=== PATIENT | male | born 1985 | race Hispanic/Latino ===

== ENCOUNTER 2018-11-15 17:09 | Inpatient (IN) | payer OTHER ==
[2018-11-15 17:36] LABS: #Basophils 0.1 thou/uL (0.0-0.2); #Eosinphils 0.1 thou/uL (0.0-0.7); #Lymphocytes 2.3 thou/uL (1.20-3.40); #Neutrophils 11.3 thou/uL (1.40-6.50); %Basophils 0.6 % (0.0-1.0); %Eosinophils 0.9 % (0.0-10.0); %Lymphocytes 15.3 % (21.0-51.0); %Monocytes 6.7 % (0.0-10.0); %Neutrophils 76.5 % (42.0-75.0); Hemoglobin 17.4 g/dL (14.0-18.0); Mean Corpuscular HGB CONC 34.1 g/dL (32.0-36.0); Mean Corpuscular Hemoglobin 30.9 pg (27.0-31.0); Mean Corpuscular Volume 90.8 fL (78.0-98.0); Mean Platelet Volume 7.1 fL (7.4-10.4); Platelet Count 337 thou/uL (130-400); RBC Distribution Width 11.8 % (11.5-14.5); Red Blood Cell (RBC) Count 5.62 mill/uL (4.70-6.10); White Blood Cell (WBC) Count 14.7 thou/uL (4.8-10.8)
[2018-11-15 18:03] LABS: ALT (SGPT) 9 U/L (8-55); AST (SGOT) 11 U/L (5-34); Albumin 4.7 g/dL (3.5-5.0); Alkaline Phosphatase 114 U/L (40-150); Anion Gap 25 mmol/L (10-20); BUN (Urea Nitrogen) 12 mg/dL (8.9-20.6); Bilirubin, Total 0.6 mg/dL (0.2-1.2); Calc. Creatinine Clearance 0 mL/min (70-130); Calcium 9.6 mg/dL (7.8-10.44); Carbon Dioxide 10 mmol/L (22-29); Chloride 99 mmol/L (98-107); Estimated GFR-MDRD 48; Glucose 323 mg/dL (70-105); Lipase 21 U/L (8-78); Potassium 4.9 mmol/L (3.5-5.1); Protein, Total 8.7 g/dL (6.0-8.3); Sodium 129 mmol/L (136-145)
[2018-11-15 19:56] LABS: Bacteria/HPF None Seen HPF (None Seen); Bilirubin Negative (Negative); Blood, Urine 1+ (Negative); Clarity Clear (Clear); Glucose, Urine (Dipstick) Greater than 1000 mg/dL (Negative); Leukocyte Negative Leu/uL (Negative); Nitrite Negative (Negative); Protein, Urine (Dipstick) 100 mg/dL (Neg-Trace); Squamous Epithelial 0-3 HPF (0-3); Urobilinogen Normal mg/dL (Less than 2); WBC/HPF 0-3 HPF (0-3)
[2018-11-15] MEDS ORDERED: Insulin Regular 300 UNITS/3 ML VIAL ONE (20:50)
[2018-11-15 21:17] LABS: Anion Gap 23 mmol/L (10-20); BUN (Urea Nitrogen) 11 mg/dL (8.9-20.6); Calc. Creatinine Clearance 0 mL/min (70-130); Calcium 8.7 mg/dL (7.8-10.44); Carbon Dioxide 10 mmol/L (22-29); Chloride 103 mmol/L (98-107); Estimated GFR-MDRD 58; Glucose 262 mg/dL (70-105); Potassium 4.8 mmol/L (3.5-5.1); Sodium 131 mmol/L (136-145)
[2018-11-15] MEDS ORDERED: NS 0.9% w/ 20 MEQ KCL 1,000 ML IV PRN ×2 (21:31)
[2018-11-15] MEDS ORDERED: Dextrose 5 %-0.45 % NaCl 1,000 ML IV PRN (21:31)
[2018-11-15] MEDS ORDERED: Sodium Chloride 0.9% 1,000 ML IV PRN ×4 (21:31)
[2018-11-15] MEDS ORDERED: CCU Electrolyte Replacement 1 EACH IVPB ONE (21:31)
[2018-11-15] MEDS ORDERED: Acetaminophen 325 MG TAB PO PRN (21:33)
[2018-11-15] MEDS ORDERED: Potassium Phosphate 15 MMOL in Sodium Chloride 0.9% 250 ML 250 ML IV PRN (21:38)
[2018-11-15] MEDS ORDERED: Potassium Phosphate 12 MMOL in Sodium Chloride 0.9% 250 ML 250 ML IV PRN (21:38)
[2018-11-15] MEDS ORDERED: Potassium Chloride 40 MEQ in Premix Bag 1 BAG IVPB PRN (21:38)
[2018-11-15] MEDS ORDERED: Magnesium Oxide 400 MG TAB PO PRN ×2 (21:38)
[2018-11-15] MEDS ORDERED: Potassium Chloride 40 MEQ in Sodium Chloride 0.9% 250 ML 250 ML IVPB PRN (21:38)
[2018-11-15] MEDS ORDERED: Potassium Chloride 20 MEQ TAB PO PRN (21:38)
[2018-11-15] MEDS ORDERED: PHOS-NAK 1 PKT PACK PO PRN ×2 (21:38)
[2018-11-15] MEDS ORDERED: CCU ELECTROLYTE REPLACEMENT PROTOCOL FS PRN (21:38)
[2018-11-15] MEDS ORDERED: Potassium Phosphate 9 MMOL in Sodium Chloride 0.9% 100 ML IVPB PRN (21:38)
[2018-11-15] MEDS ORDERED: Magnesium 2 GM/50 ML 2 GM in Premix Bag 1 BAG IVPB PRN (21:38)
[2018-11-15 21:45] LABS: Base Excess-Venous -19.3 mmol/L (-2.0 to 3.0); Bicarbonate (HCO3v) 9.2 mmol/L (22.0-28.0); CO2 Tension (PvCO2) 30.2 mmHg (40.0-50.0); Calcium, Ionized 1.14 mmol/L (See Comments:); Chloride 116 mmol/L (98-107); Hemoglobin - Calc 18.3 g/dL (14.0-18.0); Potassium 4.7 mmol/L (3.5-5.1); Sodium 135 mmol/L (138-145); T. Carbon Dioxide 10.2 mmol/L (22.0-28.0); vO2 Saturation-calc 20.2 % (60.0-85.0)
[2018-11-15] MEDS ORDERED: HUMULIN R 100 UNITS in Sodium Chloride 0.9% 100 ML IVPB SCH (21:45)
[2018-11-15 22:09] LABS: Anion Gap 21 mmol/L (10-20); BUN (Urea Nitrogen) 10 mg/dL (8.9-20.6); Calc. Creatinine Clearance 0 mL/min (70-130); Calcium 8.4 mg/dL (7.8-10.44); Chloride 106 mmol/L (98-107); Estimated GFR-MDRD 59; Glucose 238 mg/dL (70-105); Potassium 4.4 mmol/L (3.5-5.1); Sodium 132 mmol/L (136-145)
[2018-11-15 22:12] LABS: Carbon Dioxide 9 mmol/L (22-29)
[2018-11-15] MEDS ORDERED: Sodium Bicarb 50 MEQ/50 ML Abboject 8.4% SYRINGE IVP SCH (22:30)
[2018-11-15] MEDS ORDERED: Sodium Bicarb 50 MEQ/50 ML VIAL ONE (22:35)
[2018-11-15] MEDS ORDERED: Famotidine/PF 20 mg/2ml Vial SLOW IVP SCH (22:45)
[2018-11-16] MEDS: D5 1/2 NS w/20 mEq KCL 1,000 ML IV PRN ×2 (00:32→04:25)
[2018-11-16 00:50] VITALS: BMI 30.5
[2018-11-16 02:05] LABS: Anion Gap 15 mmol/L (10-20); BUN (Urea Nitrogen) 10 mg/dL (8.9-20.6); Calc. Creatinine Clearance 125 mL/min (70-130); Carbon Dioxide 14 mmol/L (22-29); Chloride 111 mmol/L (98-107); Estimated GFR-MDRD 71; Glucose 166 mg/dL (70-105); Potassium 3.6 mmol/L (3.5-5.1); Sodium 136 mmol/L (136-145)
--- NOTE | 2018-11-16 03:05 | HP ---
CHIEF COMPLAINT: Abdominal pain. HISTORY OF PRESENT ILLNESS: The patient is a 33-year-old male with history of diabetes who presents to the hospital with complaints of abdominal pain starting Wednesday. The patient stated that initially his abdominal pain was mild, however, as the days progressed, it became worse. Initially, he thought he was constipated, so he took some laxative without any relief. The patient also has been feeling very dehydrated, has been drinking significant amounts of water. He was nauseated; however denies any emesis. The patient states that today he just could not eat very much. He is just able to drink water due to increased thirst. The patient states that he was diagnosed with diabetes a few months back. Initially, his hemoglobin A1c was 6.8. After rechecking it was 5.5, he was put on metformin. The patient had his another hemoglobin A1c checked I believe in July or August, which was 11 according to him. However, the patient had lost significant amount of weight and due to that, the patient's PCP decided just to increase the metformin and just recheck a hemoglobin A1c. The patient does report that for the past month, his sugars have been in the 300s, which is high for him compared to his sugars being in the 150s. The patient denies any chest pain, fevers, chills. PAST MEDICAL HISTORY: He has a history of diabetes. As I mentioned initially, hemoglobin A1c was 6.8 and 5.5 and then it was 11.1 in June or July. PAST SURGICAL HISTORY: He denies. SOCIAL HISTORY: He denies any tobacco use or drug use. Occasional alcohol use. He is a full code. Lives with his family. MEDICATIONS: He takes metformin 1000 mg b.i.d. ALLERGIES: HE HAS NO KNOWN DRUG ALLERGIES. PHYSICAL EXAMINATION: VITAL SIGNS: Are as of the following; temperature of 98.5, heart rate is 108, blood pressure 120/60, 98% on room air. GENERAL: He is awake, alert, and oriented x3. Does not appear in any distress. HEENT: Normocephalic, atraumatic. No lymphadenopathy noted. Pupils are equal reactive to light. CV: S1 and S2 present. No murmurs, rubs, gallops. ABDOMEN: Soft, mild tenderness upon epigastric area on palpation. LUNGS: Clear to auscultation. No rhonchi or wheezes noted. EXTREMITIES: No edema pedal pulses are present x2. NEUROVASCULAR: No focal deficits noted. SKIN: No cuts, lesions or bruises noted. LABORATORY DATA: As of the following, WBC of 14.7, hemoglobin of 17.4, hematocrit of 51.0. His platelets are 337. Chemistry: Sodium initially was 129, potassium of 4.9, his BUN was 12, creatinine of 1.6. His bicarb was 10. His anion gap was 25. After resuscitation with fluids, his sodium is 132, his potassium is 4.4 and his bicarb is 9. His anion gap is 21. His creatinine is 1.40. His beta hydroxybutyric acid was 8.48. His urine indicates ketones and glucose. ASSESSMENT AND PLAN: The patient is a 33-year-old male who presents to the hospital with abdominal pain. 1. Diabetic ketoacidosis. The patient's hemoglobin A1c in June or July was 11. He is not on any insulin. He was on metformin 1000 mg b.i.d. The patient is currently on an insulin drip. He has received 3 L of normal saline. He is going to be started on the diabetic ketoacidosis protocol. Also given his bicarb of 10, we did an ABG which indicated a pH of 7.094. I will give him an amp of sodium bicarb. The patient may require sodium bicarb in his fluids. I will check a hemoglobin A1c in the morning and continue to monitor. 2. Acute kidney injury. The patient has been also using some ibuprofen for body aches and pains. It could be a combination most likely medication related. The patient also was on metformin versus possible dehydration. We will continue to monitor his creatinine. If his creatinine does not improve, he may require a renal ultrasound. 3. Anion gap metabolic acidosis most likely secondary to his diabetic ketoacidosis. We will give him an amp of bicarb and continue to monitor his BMP more closely. 4. Hyponatremia. I believe this is most likely secondary to his diabetic ketoacidosis. We will continue to monitor. 5. Deep venous thrombosis prophylaxis. We will put the patient on sequential compression devices. Job ID: [id number]
[2018-11-16 05:38] LABS: Hemoglobin A1c 12.6 % (4.0-6.0)
[2018-11-16 05:51] LABS: Anion Gap 11 mmol/L (10-20); BUN (Urea Nitrogen) 9 mg/dL (8.9-20.6); Calc. Creatinine Clearance 139 mL/min (70-130); Calcium 7.9 mg/dL (7.8-10.44); Carbon Dioxide 18 mmol/L (22-29); Chloride 109 mmol/L (98-107); Estimated GFR-MDRD 80; Glucose 135 mg/dL (70-105); Potassium 3.9 mmol/L (3.5-5.1); Sodium 134 mmol/L (136-145)
[2018-11-16] MEDS ORDERED: Dextrose 5% in Water 1,000 ML IV PRN (06:25)
[2018-11-16] MEDS ORDERED: Dextrose 50% Abboject 50 ML SYRINGE SLOW IVP PRN (06:25)
[2018-11-16] MEDS ORDERED: Insulin Glargine 12 UNITS in Pre-Filled Syringe 1 EACH SC SCH (06:30)
[2018-11-16] MEDS ORDERED: 1/2 NS w/KCL 20 mEq 1,000 ML IV SCH (08:30)
[2018-11-16] MEDS ORDERED: DC Electrolyte Protocol FS ONE (08:31)
[2018-11-16] MEDS ORDERED: Enoxaparin Sodium 40 MG/0.4 ML SYRINGE SC SCH (09:00)
[2018-11-16] MEDS ORDERED: Famotidine/PF 20 mg/2ml Vial SLOW IVP SCH (09:00)
[2018-11-16 09:08] LABS: Magnesium 1.8 mg/dL (1.6-2.6)
[2018-11-16] MEDS ORDERED: Potassium Chloride 20 MEQ in Sodium Chloride 0.45% 1,000 ML IV SCH (09:30)
[2018-11-16] MEDS: K-Phos Neutral 250 MG TAB PO SCH ×2 (12:04→16:56)
[2018-11-16] MEDS: 1/2 NS w/KCL 20 mEq 1,000 ML IV SCH ×2 (12:06→20:48)
[2018-11-16] MEDS: HumaLOG 300 UNITS/3 ML VIAL SC PRN ×3 (12:14→20:05)
--- NOTE | 2018-11-16 19:43 | PDOC.HOSPP ---
- Subjective Encounter Date: 11/16/18 Encounter Time: 09:30 Subjective: Patient seen and examined for DKA. Nausea improving. No fever/chills/CP or new focal deficits. No new complaints. No overnight events - Objective Vital Signs & Weight: Vital Signs (12 hours) Temp Pulse Resp BP Pulse Ox 11/16/18 19:06 99.1 F 84 18 114/70 99 11/16/18 10:22 98.4 F 89 18 104/72 100 11/16/18 08:00 100 Weight Admit Weight 218 lb 2 oz Weight 218 lb 2 oz Most Recent Monitor Data Heart Rate from ECG 86 NIBP 105/70 NIBP BP-Mean 81 Respiration from ECG 12 SpO2 100 I&O: 11/15/18 11/16/18 11/17/18 06:59 06:59 06:59 Intake Total 1508 800 Balance 1508 800 Result Diagrams: 11/15/18 17:28 11/16/18 05:06 Additional Labs: Accuchecks 11/16/18 11/16/18 11/16/18 16:46 11:18 05:55 POC Glucose 200 H 247 H 140 H 11/16/18 11/16/18 11/16/18 05:04 04:05 03:13 POC Glucose 138 H 149 H 159 H 11/16/18 11/16/18 11/15/18 02:08 01:07 23:46 POC Glucose 167 H 161 H 153 H Laboratory Tests 11/15/18 11/15/18 11/15/18 17:28 17:28 21:37 POC VBG pH 7.094 L* Creatinine 1.66 H Hemoglobin A1c Phosphorus B-Hydroxybutyrate 8.48 H 11/16/18 11/16/18 05:06 05:06 POC VBG pH Creatinine Hemoglobin A1c 12.6 H Phosphorus 2.0 L B-Hydroxybutyrate EKG Reviewed by me: Yes (Tele SR) Hospitalist ROS - Review of Systems Cardiovascular: denies: chest pain, palpitations, orthopnea, paroxysmal noc. dyspnea, edema, light headedness, other Gastrointestinal: denies: nausea, vomiting, abdominal pain, diarrhea, constipation, melena, hematochezia, other - Medication Medications: Active Medications Generic Name Dose Route Start Last Admin Trade Name Freq PRN Reason Stop Dose Admin Enoxaparin Sodium 40 mg 11/16/18 09:00 11/16/18 09:12 Lovenox SC Not Given 0900 MAIKOL Potassium Chloride/Sodium Chloride 1,000 mls @ 125 mls/hr 11/16/18 09:45 01/24 12:06 1/2 Ns W/Kcl 20 Meq IV 1,000 mls .Q8H MAIKOL Administration Insulin Human Lispro 0 units 11/16/18 06:25 11/16/18 16:57 Humalog SC 2 unit .MILD SLIDING SCALE PRN Administration Mild Correctional Scale Phosphorus 250 mg 11/16/18 12:00 11/16/18 16:56 Kphos Neutral PO 250 mg TID-WM MAIKOL Administration Sodium Chloride 10 ml 11/16/18 09:00 11/16/18 09:13 Flush - Normal Saline IVF 10 ml Q12HR MAIKOL Administration - Exam General Appearance: NAD Heart: RRR, no rubs Respiratory: CTAB, no ronchi Gastrointestinal: soft, non-tender, non-distended, normal bowel sounds Extremities: no cyanosis, no edema Skin: no rashes Neurological: normal sensation to touch, no new deficit Psychiatric: normal affect, A&O x 3 Hosp A/P (1) DKA (diabetic ketoacidoses) Code(s): E11.10 - TYPE 2 DIABETES MELLITUS WITH KETOACIDOSIS WITHOUT COMA Status: Acute Qualifiers: Diabetes mellitus type: type 2 (2) Uncontrolled diabetes mellitus Code(s): E11.65 - TYPE 2 DIABETES MELLITUS WITH HYPERGLYCEMIA Status: Acute Qualifiers: Diabetes mellitus type: type 2 (3) Hyponatremia Code(s): E87.1 - HYPO-OSMOLALITY AND HYPONATREMIA Status: Acute (4) Hypophosphatemia Code(s): E83.39 - OTHER DISORDERS OF PHOSPHORUS METABOLISM Status: Acute (5) HEIDY (acute kidney injury) Code(s): N17.9 - ACUTE KIDNEY FAILURE, UNSPECIFIED Status: Acute (6) Obesity (BMI 30.0-34.9) Code(s): E66.9 - OBESITY, UNSPECIFIED Status: Chronic - Plan DVT proph w/lovenox, DVT proph w/SCDs Change Insulin drip to Lantus Extensively counselled on DM2 Insulin teaching Replace electrolytes Consult intelligence senior sergeant.
[2018-11-16] MEDS: Famotidine 20 MG TAB PO SCH (20:04)
[2018-11-16] MEDS: Potassium Chloride 20 MEQ in Sodium Chloride 0.45% 1,000 ML IV SCH (20:52)
[2018-11-16] MEDS ORDERED: Insulin Glargine 10 UNITS in Pre-Filled Syringe 1 EACH SC SCH (21:00)
[2018-11-17] MEDS: HumaLOG 300 UNITS/3 ML VIAL SC PRN ×2 (02:42→05:53)
[2018-11-17 04:34] LABS: Anion Gap 15 mmol/L (10-20); BUN (Urea Nitrogen) 5 mg/dL (8.9-20.6); Calc. Creatinine Clearance 137 mL/min (70-130); Calcium 8.5 mg/dL (7.8-10.44); Carbon Dioxide 19 mmol/L (22-29); Chloride 106 mmol/L (98-107); Estimated GFR-MDRD 79; Glucose 228 mg/dL (70-105); Potassium 3.5 mmol/L (3.5-5.1); Sodium 136 mmol/L (136-145)
[2018-11-17] MEDS: Potassium Chloride 20 MEQ in Sodium Chloride 0.45% 1,000 ML IV SCH (04:44)
[2018-11-17] MEDS: Famotidine 20 MG TAB PO SCH (08:00)
[2018-11-17] MEDS: K-Phos Neutral 250 MG TAB PO SCH (08:00)
[2018-11-17] MEDS ORDERED: Insulin Glargine 12 UNITS in Pre-Filled Syringe 1 EACH SC SCH (09:00)
[2018-11-17 10:29] VITALS: BP 112/71; TEMP 98.3
--- NOTE | 2018-11-17 16:31 | DIS ---
DATE OF ADMISSION: 11/15/2018 DATE OF DISCHARGE: 11/17/2018 DISCHARGE DISPOSITION: Home. FOLLOWUP: Follow up with primary care physician at [facility] in 1 week. HISTORY: The patient was seen and examined on the day of discharge. Denies any new complaints. No chest pain, shortness of breath, or palpitations reported. DISCHARGE MEDICATIONS: 1. Novolin N 10 units daily. 2. Glipizide 5 mg b.i.d. with meals. 3. Metformin 1000 mg b.i.d. with meals. BRIEF HOSPITAL COURSE: The patient is a 33-year-old male with diabetes mellitus type 2, presented to the hospital with abdominal discomfort along with nausea. His workup was consistent with diabetic ketoacidosis. His VBG showed pH of 7.09 with pCO2 of 30.2, bicarbonate of 9.2 with ketone of 8.48. He was monitored in the intermediate care unit and was started on insulin drip. His symptoms gradually improved. Later on, insulin was transitioned to subcutaneous. He has been started on long-acting insulin. He was extensively counseled on dietary modification by dietitian as well. He also understands the risk associated with insulin, not limited to significant hypoglycemia causing coma. He will monitor his blood sugar on the daily basis until he is stable. He was advised to follow up with [facility]. He also had electrolyte abnormalities, which were replaced. FINAL DIAGNOSES: 1. Generalized weakness with nausea and abdominal discomfort secondary to diabetic ketoacidosis. 2. Uncontrolled diabetes mellitus, type 2. His hemoglobin A1c was 12.6. 3. Acute kidney injury with maximum creatinine of 1.66 on admission. 4. Electrolyte abnormalities including hypophosphatemia, hyponatremia. 5. Anion gap metabolic acidosis secondary to diabetic ketoacidosis. 6. Obesity with a BMI of 30.5. 7. Chronic kidney disease, stage 2. 8. Leukocytosis unlikely to be infectious. PLAN: Plan was discussed with the patient in detail. He stated understanding. Job ID: [id number]
== END 2018-11-17 12:59 | disposition home or self-care (01) | DRG 638 ==
LOC: ERS 17:09 → IMCU/EMU 23:34 → T4-B 11-16 10:43
PROVIDERS: ADMIT Internal Medicine; ATTEND Internal Medicine
DX: E11.10 Type 2 diabetes mellitus with ketoacidosis without coma (principal); N17.9 Acute kidney failure, unspecified; E87.1 Hypo-osmolality and hyponatremia; E83.39 Other disorders of phosphorus metabolism; E66.9 Obesity, unspecified; N18.2 Chronic kidney disease, stage 2 (mild); E11.22 Type 2 diabetes mellitus with diabetic chronic kidney disease; D72.829 Elevated white blood cell count, unspecified; Z79.84 Long term (current) use of oral hypoglycemic drugs; Z68.30 Body mass index [BMI] 30.0-30.9, adult
CPT/HCPCS: 36415; 36416; 80048; 80053; 81003; 81015; 82010; 82330; 82803; 83036; 83690; 83735; 84100; 85025; 96361; 96365; 96366; 96375; J1650; J1815; J3480; S0028